=== PATIENT | male | born 1970 | race African-American/Black ===

== ENCOUNTER 2019-02-16 18:47 | Inpatient (IN) | payer OTHER ==
--- NOTE | 2019-02-16 18:56 | PDOC ---
Rapid Medical Evaluation Time Seen by Provider: 02/16/19 18:52 Medical Evaluation: 02/16/19 18:52 T 02/16/19 19:02 Discharge Disposition - Diagnosis Chest pain - Referrals - Patient Instructions - Post Discharge Activity
--- NOTE | 2019-02-16 19:42 | PDOC ---
Documentation entered by Elif Hunt SCRIBE, acting as scribe for Renata Meyer DO. Renata Meyer, DO: This documentation has been prepared by the Gilbert torres Adrianna, SCRIBE, under my direction and personally reviewed by me in its entirety. I confirm that the documentation accurately reflects all work, treatment, procedures, and medical decision making performed by me. 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 [place]. He was found with urinary incontinence, inability to converse and provide a history, and had a map on [employer] (with hand written directions) and his next of kin information (sister). As per phone call with sister, patient frequently wanders (began after last stroke) and she lost track of him 24 hours ago. He was in [facility] for 3 weeks for agitation and AMS, and was staying in the [facility]. HPI is limited secondary to patient being a poor historian. Patient shakes his head no when asked of any complaints of pain or symptoms when in the ED. PCP: Dr. Car - Physicial Exam PE: Constitutional: +Awake, responsive to name. +Severe dysarthria and expressive aphasia. +Disheveled, with odor of urine on him. Head: Normocephalic. Atraumatic Eyes: PERRL. EOMI. Conjunctivae are not pale. ENT: Mucous membranes are moist and intact. Posterior pharynx without exudates or erythema. Uvula midline. Neck: Supple. Full ROM. No lymphadenopathy. Cardiovascular: Regular rate. Regular rhythm. S1, S2 regular. Distal pulses are 2+ and symmetric. Pulmonary/Chest: No evidence of respiratory distress. Clear to auscultation bilaterally No wheezing, rales or rhonchi. Abdominal: Soft and non-distended. There is no tenderness. No rebound, guarding or rigidity. No organomegaly. No palpable masses. Good bowel sounds. Back: No CVA tenderness. Musculoskeletal: +LE MS 4/5 , with the right weaker than the left. 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 No edema. No cyanosis. No clubbing. Full range of motion in all extremities, and sensation intact (from what could be appreciated). No calf tenderness. Radial/pedal pulses are intact and 2+ bilaterally Skin: Skin is warm and dry. No petechiae. No purpura. Neurological: + +LE MS 4/5 , with the right weaker than the left. 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 No focal deficits. Psychiatric: Good eye contact. Normal interaction, affect and behavior. - Medical Decision Making 02/16/19 19:35 I, Dr. Renata Meyer, DO, attest that this document has been prepared under my direction and personally reviewed by me in its entirety. I further attest, that it accurately reflects all work, treatment, procedures and medical decision -making performed by me. 02/16/19 19:35 a/p: 48yo male with hx of cva x 3 with aphasia/dysarthria and motor weakness presents via ambulance after being found with urinary incontinence at the bus stop -pt is a poor historian -has a bus map and hand written map of [place] -pt has a hand written laminated note that has sister as next of kin and emergency contact - resident discussing with the sister -pt shakes head yes and no to questions, but is unable to provide a hx -pt is disheveled and with smell of urine -per sister, freq wanders, altered ms -wandered off yesterday, last seen over 24 hours ago 02/16/19 19:42 will send labs, ekg, cxr, ua, head ct 02/16/19 19:47 recently dc from [place] on 02/05 after admission for AMS and agitation dc on losartan 50mg, norvasc 5mg lives at [facility] - lead case manager Mr. Avilez [phone] 02/16/19 20:39 cxr clear 02/16/19 21:46 mildly elevated trop will need repeat pending ua 02/17/19 01:21 ua neg 02/17/19 01:49 case discussed with rosalio who accepts pt to service Heart Score/ECG Review - ECG Intrepretation Comment:: 02/16/19 20:19 sinus at 71, nl axis, q waves septally which are age indeterminate, no acute st/ t wave findings, qtc 482
[2019-02-16 20:18] LABS: BASO % 1.7 % (0-2.0); EOS % 2.8 % (0-4.5); HEMATOCRIT 41.3 % (35.4-49); HEMOGLOBIN 13.7 GM/dL (11.7-16.9); LYMPH % 36.8 % (8-40); MCH 27.5 pg (25.7-33.7); MCHC 33.3 g/dl (32.0-35.9); MEAN CELL VOLUME 82.5 fl (80-96); MONO % 10.8 % (3.8-10.2); NEUT % 47.9 % (42.8-82.8); PLATELET COUNT 228 K/MM3 (134-434); RDW 14.2 % (11.9-15.9); WHITE BLOOD COUNT 4.6 K/mm3 (4.0-10.0)
--- NOTE | 2019-02-16 20:36 | PDOC ---
History of Present Illness - General Chief Complaint: Altered Mental Status Stated Complaint: FAILURE TO THRIVE Time Seen by Provider: 02/16/19 18:52 History Source: Patient Exam Limitations: No Limitations - History of Present Illness Initial Comments: 02/16/19 19:51 48 yo M with a hx of CVA (3x, most recent 2017, known expressive aphasia, dysarthria, and RLE and LUE weakness) and bipolar disorder presents to the emergency department via EMS after being found at the train station in [place] incontinent and confused. Per the patient's sister (Lisa Shin; [phone] ; [address]) stated her brother has been missing for the past 24 hours and has no connections to [place]. He was recently admitted at [facility] for agitation and worsening confusion. He was released back to his men's detention at [facility] (community case manager is Mr. Hendrickson [phone]). Per the patient, he denies symptomatic pain. Denies the following with yes and no responded with head nodding: fevers, chills, chest pain, SOB, abdominal pain, dysuria, hematuria, diarrhea, and hematochezia. While at [facility] he was given norvasc and losartan. Allergies: NKDA Meds: norvasc 5 mg, 50 mg of losaran, aspirin, lipitor Shx: Per the sister, possibly with the head? Social: Unable to assess Past History - Past Medical History Allergies/Adverse Reactions: Allergies Allergy/AdvReac Type Severity Reaction Status Date / Time No Allergy Information Allergy Verified 02/16/19 19:27 Available Home Medications: Ambulatory Orders Unobtainable 02/16/19 CVA: Yes COPD: No HTN: Yes Other medical history: SHORT TERM MEMORY LOSS, INCONTINENT - Suicide/Smoking/Psychosocial Hx Smoking History: Unknown if ever smoked Have you smoked in the past 12 months: No Information on smoking cessation initiated: No Hx Alcohol Use: (unknown) Drug/Substance Use Hx: (unknown) Review of Systems - Review of Systems Able to Perform ROS?: No (AMS) Is the patient limited Lithuanian proficient: Yes *Physical Exam - Vital Signs Last Vital Signs Temp Pulse Resp BP Pulse Ox 97.4 F L 73 18 150/98 98 02/16/19 19:34 02/16/19 19:34 02/16/19 19:34 02/16/19 19:34 02/16/19 19:34 - Physical Exam General Appearance: Yes: Nourished, Disheveled, Thin. No: Apparent Distress, Alcohol on Breath HEENT: positive: EOMI, NORA, Normal Voice, Symmetrical, Pharynx Normal, Muffled/ Hoarse voice, Hearing Grossly Normal, Other (poor dentition). negative: Pale Conjunctivae, Scleral Icterus (R), Scleral Icterus (L), Pharyngeal Erythema, Tonsillar Exudate, Excessive drooling Neck: positive: Trachea midline, Supple. negative: Tender, Lymphadenopathy (R) , Lymphadenopathy (L) Respiratory/Chest: positive: Lungs Clear, Normal Breath Sounds. negative: Chest Tender, Respiratory Distress, Accessory Muscle Use, Crackles, Rales, Rhonchi, Stridor, Wheezing Cardiovascular: positive: Regular Rhythm, Regular Rate, S1, S2. negative: Systolic Murmur Gastrointestinal/Abdominal: positive: Normal Bowel Sounds, Flat, Soft. negative : Tender, Distended, Guarding, Rebound Lymphatic: negative: Adenopathy Musculoskeletal: positive: Normal Inspection. negative: CVA Tenderness, Vertebral Tenderness Extremity: positive: Normal Capillary Refill, Normal Inspection, Normal Range of Motion. negative: Tender, Swelling, Calf Tenderness Integumentary: positive: Normal Color, Dry, Warm. negative: Swelling, Ecchymosis Neurologic: positive: plan consultant II-XII NML intact, Alert. negative: Fully Oriented, Normal Mood/Affect, Motor Strength 5/5 (4/5 strength left egg pasteurizer. 4/5 strength left bicep and tricep. 3/5 strength on LLE flexion and extension. ), EOM Palsy, Facial Droop ED Treatment Course - LABORATORY CBC & Chemistry Diagram: 02/17/19 08:12 02/17/19 08:12 - RADIOLOGY Radiology Studies Ordered: Category Date Time Status HEAD CT WITHOUT CONTRAST [CT] Stat CT Scan 02/16/19 19:30 Ordered CHEST X-RAY PORTABLE* [RAD] Stat Radiology 02/16/19 19:30 Ordered Medical Decision Making - Medical Decision Making 02/16/19 22:02 48 yo M with a hx of CVA (3x, most recent 2018, known expressive aphasia, dysarthria, and RLE and LUE weakness) and bipolar disorder presents to the emergency department via EMS after being found at the train station in [place] incontinent and confused. Initial vitals: Initial Vital Signs Temp Pulse Resp BP Pulse Ox 97.6 F 71 16 150/98 100 02/16/19 19:01 02/16/19 19:01 02/16/19 19:01 02/16/19 19:01 02/16/19 19:01 Work up: Patient presents to the emergency department with AMS. Will order cbc, cmp, trops, ua, urine drug screen, tylenol, and salicylate. Will order head CT and CXR. Laboratory Tests 02/16/19 02/16/19 02/16/19 19:59 19:59 19:59 WBC RBC Hgb Hct MCV MCH MCHC RDW Plt Count MPV Absolute Neuts (auto) Neutrophils % Lymphocytes % Monocytes % Eosinophils % Basophils % Nucleated RBC % Sodium Potassium Chloride Carbon Dioxide Anion Gap BUN Creatinine Est GFR (CKD-EPI)AfAm Est GFR (CKD-EPI)NonAf Random Glucose Calcium Total Bilirubin AST ALT Alkaline Phosphatase Creatine Kinase 226 Creatine Kinase Index No Result Required. CK-MB (CK-2) < 1.0 Troponin I 0.06 H Total Protein Albumin Salicylates Acetaminophen < 10 L Alcohol, Quantitative < 3.0 02/16/19 02/16/19 02/16/19 19:59 19:59 19:59 WBC 4.6 RBC 5.00 Hgb 13.7 Hct 41.3 MCV 82.5 MCH 27.5 MCHC 33.3 RDW 14.2 Plt Count 228 MPV 9.0 Absolute Neuts (auto) 2.2 Neutrophils % 47.9 Lymphocytes % 36.8 Monocytes % 10.8 H Eosinophils % 2.8 Basophils % 1.7 Nucleated RBC % 0 Sodium 144 Potassium 4.7 Chloride 109 H Carbon Dioxide 30 Anion Gap 5 L BUN 14.4 Creatinine 1.0 Est GFR (CKD-EPI)AfAm 101.98 Est GFR (CKD-EPI)NonAf 87.99 Random Glucose 101 Calcium 8.9 Total Bilirubin 0.4 AST 23 ALT 17 Alkaline Phosphatase 77 Creatine Kinase Creatine Kinase Index CK-MB (CK-2) Troponin I Total Protein 7.0 Albumin 2.7 L Salicylates < 1.7 L Acetaminophen Alcohol, Quantitative Patient has an elevation of troponin of 0.06. The patient will need a straight catheter to obtain urine labs. 02/16/19 22:07 Patient became agitated while having a straight cath done. Will order 2 mg of Ativan IM and will have IV inserted for management of agitation. Per Davide, the patient needed haldol PRN. Of note, the EKG shows prolonged QT at 482 ms. NSR. No elevations in ST elevations or depressions. Will sign out patient to Dr. Mcwilliams. *DC/Admit/Observation/Transfer Diagnosis at time of Disposition: Elevated troponin Altered mental status Qualifiers: Altered mental status type: unspecified Qualified Code(s): R41.82 - Altered mental status, unspecified - Discharge Dispostion Condition at time of disposition: Stable - Referrals - Patient Instructions - Post Discharge Activity
[2019-02-16 21:22] LABS: ALBUMIN 2.7 g/dl (3.4-5.0); BILIRUBIN,TOTAL 0.4 mg/dL (0.2-1); BLOOD UREA NITROGEN 14.4 mg/dL (7-18); CALCIUM 8.9 mg/dL (8.5-10.1); POTASSIUM 4.7 mmol/L (3.5-5.1)
--- NOTE | 2019-02-16 22:18 | PDOC ---
*Physical Exam - Vital Signs Last Vital Signs Temp Pulse Resp BP Pulse Ox 97.4 F L 73 18 150/98 98 02/16/19 19:34 02/16/19 19:34 02/16/19 19:34 02/16/19 19:34 02/16/19 19:34 - Physical Exam Comments: MDM: *Reviewed vital signs, nursing notes, and prior visit documentation (if available). Received sign out from resident Dr. Hart. In short, pt is a 48 y/o male with history significant for Bipolar disorder and CVA with expressive aphasia, dysarthria, and RLE and LUE weakness. Found confused and incontent of urine at [facility]. Initial workup significant for mildly elevated troponin without acute ischemic EKG changes. Will f/u on pending UA and culture. May require sedation for straight catheterization. Concern for safe discharge as pt lives in a detention and sister lives in [place] without a car. Pt required Lorazepam to calm before obtaining catheterized urine sample. UA unremarkable for pyurita, nitrites, or leukocyte esterase. Low suspicion for acute cystitis. ED [facility] with elevated troponin. Repeat EKG and troponin pending at time of admission. Herb Mcwilliams M.D., PGY2 Emergency Medicine Resident ED Treatment Course - LABORATORY CBC & Chemistry Diagram: 02/16/19 19:59 02/16/19 19:59 - ADDITIONAL ORDERS Additional order review: Laboratory Results 02/16/19 02/16/19 02/16/19 19:59 19:59 19:59 Sodium 144 Potassium 4.7 Chloride 109 H Carbon Dioxide 30 Anion Gap 5 L BUN 14.4 Creatinine 1.0 Est GFR (CKD-EPI)AfAm 101.98 Est GFR (CKD-EPI)NonAf 87.99 Random Glucose 101 Calcium 8.9 Total Bilirubin 0.4 AST 23 ALT 17 Alkaline Phosphatase 77 Creatine Kinase 226 Creatine Kinase Index No Result Required. CK-MB (CK-2) < 1.0 Troponin I 0.06 H Total Protein 7.0 Albumin 2.7 L Salicylates < 1.7 L Acetaminophen Alcohol, Quantitative 02/16/19 02/16/19 19:59 19:59 Sodium Potassium Chloride Carbon Dioxide Anion Gap BUN Creatinine Est GFR (CKD-EPI)AfAm Est GFR (CKD-EPI)NonAf Random Glucose Calcium Total Bilirubin AST ALT Alkaline Phosphatase Creatine Kinase Creatine Kinase Index CK-MB (CK-2) Troponin I Total Protein Albumin Salicylates Acetaminophen < 10 L Alcohol, Quantitative < 3.0 02/16/19 19:59 RBC 5.00 MCV 82.5 MCHC 33.3 RDW 14.2 MPV 9.0 Neutrophils % 47.9 Lymphocytes % 36.8 Monocytes % 10.8 H Eosinophils % 2.8 Basophils % 1.7 *DC/Admit/Observation/Transfer Diagnosis at time of Disposition: Elevated troponin Altered mental status Qualifiers: Altered mental status type: unspecified Qualified Code(s): R41.82 - Altered mental status, unspecified - Discharge Dispostion Condition at time of disposition: Stable Decision to Admit order: Yes - Referrals - Patient Instructions - Post Discharge Activity
[2019-02-16] MEDS ORDERED: LORazepam 2 MG/ML SDV VIAL ONE (22:42)
[2019-02-17 01:17] LABS: EPI CELLS 1.6 /HPF (0-5/HPF); HYALINE CASTS 3 /lpf (0-8); PH,URINE 5.5 (5.0-8.0); URINE APPEARANCE CLEAR; URINE BILIRUBIN NEGATIVE (NEGATIVE); URINE COLOR YELLOW; URINE GLUCOSE (UA) NEGATIVE (NEGATIVE); URINE KETONE NEGATIVE (NEGATIVE); URINE LEUK ESTERASE NEGATIVE (NEGATIVE); URINE NITRITE NEGATIVE (NEGATIVE); URINE PROTEIN 3+ (NEGATIVE); URINE RBC 0 /hpf (0-4); URINE UROBILINOGEN 0.2 mg/dL (0.2-1.0); URINE WBC 1 /hpf (0-5)
[2019-02-17 01:27] LABS: COCAINE, UR NEGATIVE ng/ml (CUTOFF=300); METHADONE, UR NEGATIVE ng/ml (CUTOFF=300); OPIATES, URI NEGATIVE ng/ml (CUTOFF=300); PHENCYCLIDINE,URINE NEGATIVE ng/ml (CUTOFF=25); URINE AMPHETAMINES NEGATIVE ng/ml (CUTOFF=500); URINE BARBITURATES NEGATIVE ng/ml (CUTOFF=200); URINE BENZODIAZEPINES NEGATIVE ng/ml (CUTOFF=200)
--- NOTE | 2019-02-17 01:49 | HP ---
CHIEF COMPLAINT: found confused and incontinent PCP: HISTORY OF PRESENT ILLNESS: 48M w/ pmh of CVA(3x, 2017), expressive aphasia, dysarthria, bipolar disorder [place] ED contacted the patient's sister(Lisa Shin [phone]) for information. Pt prone to wandering ever since having his stroke. Recently, admitted to [facility] for confusion, agitation. HPI is limited as patient does not answer any questions, unwilling to nod or shake head to questions. HPI supplemented from chart review. ER course was notable for: (1) agitation during straight cath, prompting Ativan (2) CTH -neg for acute intracranial path, chronic supra/infratentorial infarcts , periventrical/subcortical microvascular disease (3) Utox neg Recent Travel: PAST MEDICAL HISTORY: CVA(3x, 2017), expressive aphasia, dysarthria, bipolar disorder PAST SURGICAL HISTORY: unknown, possible head surg Social History: Smoking: uknown Alcohol: unknown Drugs: unknown Family History: unknown Allergies: uknown No Allergy Information Available Allergy (Verified 02/16/19 19:27) HOME MEDICATIONS: Home Medications Medication Instructions Recorded Unobtainable 02/16/19 REVIEW OF SYSTEMS - unable to obtain as patient does not answer questions PHYSICAL EXAMINATION Vital Signs - 24 hr 02/16/19 02/16/19 02/17/19 19:01 19:34 00:30 Temperature 97.6 F 97.4 F L 98.4 F Pulse Rate 71 73 Pulse Rate [ 67 Right Radial] Respiratory 16 18 12 Rate Blood Pressure 150/98 150/98 Blood Pressure 170/128 H [Left Arm] O2 Sat by Pulse 100 98 99 Oximetry (%) GENERAL: in no acute distress. HEAD: no signs of trauma. Multiple stellate scalp lesions EYES: Pupils equal, round and reactive to light, extraocular movements intact, sclera anicteric, conjunctiva clear. EARS, NOSE, THROAT: Ears normal, nares patent, oropharynx clear without exudates. Moist mucous membranes. NECK: supple without lymphadenopathy, JVD, or masses. LUNGS: Breath sounds equal, clear to auscultation bilaterally. No wheezes, and no crackles. No accessory muscle use. HEART: Regular rate and rhythm, normal S1 and S2 without murmur, rub or gallop. ABDOMEN: Soft, nontender, not distended, no guarding, no rebound, no masses. MUSCULOSKELETAL: Normal range of motion at all joints. No bony deformities or tenderness. No CVA tenderness. UPPER EXTREMITIES: 2+ pulses, warm, well-perfused. No cyanosis. No clubbing. No peripheral edema. LOWER EXTREMITIES: 2+ pulses, warm, well-perfused. No calf tenderness. No peripheral edema. NEUROLOGICAL: GCS 10(E3, V2, M5) SKIN: Warm, dry, normal turgor, no rashes or lesions noted, normal capillary refill. Laboratory Results - last 24 hr 02/16/19 02/16/19 02/16/19 19:59 19:59 19:59 WBC RBC Hgb Hct MCV MCH MCHC RDW Plt Count MPV Absolute Neuts (auto) Neutrophils % Lymphocytes % Monocytes % Eosinophils % Basophils % Nucleated RBC % Sodium Potassium Chloride Carbon Dioxide Anion Gap BUN Creatinine Est GFR (CKD-EPI)AfAm Est GFR (CKD-EPI)NonAf Random Glucose Calcium Total Bilirubin AST ALT Alkaline Phosphatase Creatine Kinase 226 Creatine Kinase Index No Result Required. CK-MB (CK-2) < 1.0 Troponin I 0.06 H Total Protein Albumin Urine Color Urine Appearance Urine pH Ur Specific [place] Urine Protein Urine Glucose (UA) Urine Ketones Urine Blood Urine Nitrite Urine Bilirubin Urine Urobilinogen Ur Leukocyte Esterase Urine WBC (Auto) Urine RBC (Auto) Urine Casts (Auto) U Epithel Cells (Auto) Urine Bacteria (Auto) Salicylates Opiates Screen Methadone Screen Acetaminophen < 10 L Barbiturate Screen Phencyclidine Screen Ur Amphetamines Screen MDMA (Ecstasy) Screen Benzodiazepines Screen Cocaine Screen U Marijuana (THC) Screen Alcohol, Quantitative < 3.0 02/16/19 02/16/19 02/16/19 19:59 19:59 19:59 WBC 4.6 RBC 5.00 Hgb 13.7 Hct 41.3 MCV 82.5 MCH 27.5 MCHC 33.3 RDW 14.2 Plt Count 228 MPV 9.0 Absolute Neuts (auto) 2.2 Neutrophils % 47.9 Lymphocytes % 36.8 Monocytes % 10.8 H Eosinophils % 2.8 Basophils % 1.7 Nucleated RBC % 0 Sodium 144 Potassium 4.7 Chloride 109 H Carbon Dioxide 30 Anion Gap 5 L BUN 14.4 Creatinine 1.0 Est GFR (CKD-EPI)AfAm 101.98 Est GFR (CKD-EPI)NonAf 87.99 Random Glucose 101 Calcium 8.9 Total Bilirubin 0.4 AST 23 ALT 17 Alkaline Phosphatase 77 Creatine Kinase Creatine Kinase Index CK-MB (CK-2) Troponin I Total Protein 7.0 Albumin 2.7 L Urine Color Urine Appearance Urine pH Ur Specific [place] Urine Protein Urine Glucose (UA) Urine Ketones Urine Blood Urine Nitrite Urine Bilirubin Urine Urobilinogen Ur Leukocyte Esterase Urine WBC (Auto) Urine RBC (Auto) Urine Casts (Auto) U Epithel Cells (Auto) Urine Bacteria (Auto) Salicylates < 1.7 L Opiates Screen Methadone Screen Acetaminophen Barbiturate Screen Phencyclidine Screen Ur Amphetamines Screen MDMA (Ecstasy) Screen Benzodiazepines Screen Cocaine Screen U Marijuana (THC) Screen Alcohol, Quantitative 02/17/19 02/17/19 00:52 00:52 WBC RBC Hgb Hct MCV MCH MCHC RDW Plt Count MPV Absolute Neuts (auto) Neutrophils % Lymphocytes % Monocytes % Eosinophils % Basophils % Nucleated RBC % Sodium Potassium Chloride Carbon Dioxide Anion Gap BUN Creatinine Est GFR (CKD-EPI)AfAm Est GFR (CKD-EPI)NonAf Random Glucose Calcium Total Bilirubin AST ALT Alkaline Phosphatase Creatine Kinase Creatine Kinase Index CK-MB (CK-2) Troponin I Total Protein Albumin Urine Color Yellow Urine Appearance Clear Urine pH 5.5 Ur Specific [place] 1.019 Urine Protein 3+ H Urine Glucose (UA) Negative Urine Ketones Negative Urine Blood Negative Urine Nitrite Negative Urine Bilirubin Negative Urine Urobilinogen 0.2 Ur Leukocyte Esterase Negative Urine WBC (Auto) 1 Urine RBC (Auto) 0 Urine Casts (Auto) 3 U Epithel Cells (Auto) 1.6 Urine Bacteria (Auto) 3.0 Salicylates Opiates Screen Negative Methadone Screen Negative Acetaminophen Barbiturate Screen Negative Phencyclidine Screen Negative Ur Amphetamines Screen Negative MDMA (Ecstasy) Screen Negative Benzodiazepines Screen Negative Cocaine Screen Negative U Marijuana (THC) Screen Negative Alcohol, Quantitative ASSESSMENT/PLAN: 48M w/ pmh of CVA(3x, 2017), expressive aphasia, dysarthria, bipolar disorder [place], presenting with AMS w/ uknown/unverfied baseline. # AMS 2/2 unknow etiology vs baseline # risk of agitation > CTH: prelim read for acute intracranial path. Chronic supra/infratenorial infarct, periventricular/subcortical microvascular disease > UA: protein 3+, neg LE, neg nitrite > Utox: neg - fu final CTH - consider MRI head - fall precautions - seizure precautions - 1:1 sitter - fu labs: ammonia, B12, RPR, HIV - fu UCX - fu carotid duplex - ativan PRN for agitations # troponemia > troponin 0.06 --> 0.06 > EKG: NSR, w/ rpt also showing NSR - fu serial troponins # chronic HTN - hydralazine PRN - will need med rec FEN - NPO d/t aspiration risk - NS @100ml/h DVT prophylaxis - enoxaparin DISPO # nondomicile -- ?lives at [facility] - fu social work consult Glen Cummings, DO PGY-1 Medicine, PM-Float [id number] 02/17/19 Visit type - Emergency Visit Emergency Visit: Yes ED Registration Date: 02/17/19 Care time: The patient presented to the Emergency Department on the above date and was hospitalized for further evaluation of their emergent condition. - New Patient This patient is new to me today: Yes Date on this admission: 02/17/19 - Critical Care Critical Care patient: No ATTENDING PHYSICIAN STATEMENT I saw and evaluated the patient. I reviewed the resident's note and discussed the case with the resident. I agree with the resident's findings and plan as documented. SUBJECTIVE: OBJECTIVE: ASSESSMENT AND PLAN:
[2019-02-17] MEDS ORDERED: hydrALAZINE HCL 20 MG/ML VIAL IVPUSH ONE (02:26)
[2019-02-17] MEDS ORDERED: hydrALAZINE HCL 20 MG/ML VIAL ONE (02:29)
[2019-02-17] MEDS ORDERED: SODIUM CHLORIDE 1,000 ML IV SCH (06:15)
[2019-02-17 08:35] LABS: BASO % 1.7 % (0-2.0); EOS % 4.3 % (0-4.5); HEMATOCRIT 43.3 % (35.4-49); HEMOGLOBIN 14.5 GM/dL (11.7-16.9); LYMPH % 26.4 % (8-40); MCH 27.4 pg (25.7-33.7); MCHC 33.4 g/dl (32.0-35.9); MEAN CELL VOLUME 82.2 fl (80-96); MEAN PLT VOLUME 8.8 fl (7.5-11.1); MONO % 12.8 % (3.8-10.2); NEUT % 54.8 % (42.8-82.8); PLATELET COUNT 203 K/MM3 (134-434); RBC 5.27 M/mm3 (4.00-5.60); RDW 14.5 % (11.9-15.9)
[2019-02-17 09:00] LABS: ALBUMIN 2.6 g/dl (3.4-5.0); BILIRUBIN,TOTAL 0.4 mg/dL (0.2-1); BLOOD UREA NITROGEN 11.1 mg/dL (7-18); MAGNESIUM 1.9 mg/dL (1.8-2.4); TOT PROT 6.7 g/dl (6.4-8.2)
[2019-02-17] MEDS ORDERED: ENOXAPARIN NA (PORCINE) 40 MG/0.4 ML DISP.SYRIN SQ SCH (10:00)
[2019-02-17] MEDS ORDERED: TOBRAMYCIN 0.3% OPHTH SOLN 5 ML BOTTLE OD ONE (13:45)
[2019-02-17] MEDS ORDERED: LISINOPRIL 20 MG TABLET (FP) PO SCH (13:45)
--- NOTE | 2019-02-17 14:36 | EKG ---
Test Reason : Blood Pressure : / mmHG Vent. Rate : 060 BPM Atrial Rate : 060 BPM P-R Int : 154 ms QRS Dur : 102 ms QT Int : 448 ms P-R-T Axes : 067 036 026 degrees QTc Int : 448 ms NORMAL SINUS RHYTHM WITH SINUS ARRHYTHMIA MINIMAL VOLTAGE CRITERIA FOR LVH, MAY BE NORMAL VARIANT BORDERLINE ECG WHEN COMPARED WITH ECG OF 17-FEB-2019 01:41, NO SIGNIFICANT CHANGE WAS FOUND Confirmed by HERNANDO TOSCANO, CLINT ([id number]) on 02/17/2019 2:36:35 PM Referred By: Confirmed By:CLINT VILLAGOMEZ MD
--- NOTE | 2019-02-17 14:36 | EKG ---
Test Reason : Blood Pressure : / mmHG Vent. Rate : 061 BPM Atrial Rate : 061 BPM P-R Int : 166 ms QRS Dur : 104 ms QT Int : 452 ms P-R-T Axes : 070 049 034 degrees QTc Int : 455 ms NORMAL SINUS RHYTHM WITH SINUS ARRHYTHMIA NORMAL ECG WHEN COMPARED WITH ECG OF 16-FEB-2019 19:42, NO SIGNIFICANT CHANGE WAS FOUND Confirmed by CLINT VILLAGOMEZ MD ([id number]) on 02/17/2019 2:36:44 PM Referred By: Confirmed By:CLINT VILLAGOMEZ MD
--- NOTE | 2019-02-17 14:39 | EKG ---
Test Reason : Blood Pressure : / mmHG Vent. Rate : 071 BPM Atrial Rate : 071 BPM P-R Int : 168 ms QRS Dur : 102 ms QT Int : 444 ms P-R-T Axes : 061 033 017 degrees QTc Int : 482 ms NORMAL SINUS RHYTHM PROLONGED QT ABNORMAL ECG NO PREVIOUS ECGS AVAILABLE Confirmed by CLINT VILLAGOMEZ MD ([id number]) on 02/17/2019 2:38:48 PM Referred By: Confirmed By:CLINT VILLAGOMEZ MD
[2019-02-17] MEDS ORDERED: LISINOPRIL 20 MG TABLET (FP) ONE (15:37)
[2019-02-17] MEDS ORDERED: TOBRAMYCIN 0.3% OPHTH SOLN 5 ML BOTTLE ONE (15:37)
--- NOTE | 2019-02-17 16:31 | ECHO ---
Name: MANDO MIGUEL SHANE Exam:Adult Echocardiogram Study Date: 02/17/2019 12:36 PM Age: 48 yrs Reason For Study: Stroke Height: 67 in Weight: 160 lb BSA: 1.8 m2 MMode/2D Measurements & Calculations IVSd: 1.5 cm Ao root diam: 3.1 cm LVIDd: 3.7 cm LA dimension: 2.8 cm LVIDs: 2.6 cm LVPWd: 1.4 cm EDV(Teich): 59.7 ml LVOT diam: 2.2 cm ESV(Teich): 25.5 ml LAV (MOD-bp): 31.4 ml Doppler Measurements & Calculations MV E max santosh: 57.7 cm/sec Ao V2 max: 126.9 cm/sec MV A max santosh: 69.4 cm/sec Ao max P.5 mmHg MV E/A: 0.83 MV dec time: 0.18 sec ALONSO(V,D): 3.7 cm2 LV V1 max P.6 mmHg MR max santosh: 282.3 cm/sec LV V1 max: 118.8 cm/sec MR max P.9 mmHg PA V2 max: 99.1 cm/sec Med Peak E' Santosh: 6.7 cm/sec PA max P.9 mmHg Med E/e': 8.6 Lat Peak E' Santosh: 11.4 cm/sec Lat E/e': 5.1 Procedure A complete two-dimensional transthoracic echocardiogram was performed (2D, M-mode, Doppler and color flow Doppler). Left Ventricle There is moderate concentric left ventricular hypertrophy. The left ventricular ejection fraction is normal. Ejection Fraction = 65-70%. The left ventricular wall motion is normal. Right Ventricle The right ventricle is normal in size and function. Atria Normal left and right atrial size and function. Mitral Valve There is trace mitral regurgitation. Tricuspid Valve No tricuspid regurgitation. There was insufficient TR detected to calculate RV systolic pressure. Aortic Valve The aortic valve is trileaflet. No hemodynamically significant valvular aortic stenosis. No aortic regurgitation is present. Pulmonic Valve There is no pulmonic valvular regurgitation. Great Vessels The aortic root is normal size. Pericardium/Pleura There is no pericardial effusion. Interpretation Summary There is moderate concentric left ventricular hypertrophy. The left ventricular ejection fraction is normal. The right ventricle is normal in size and function. There is trace mitral regurgitation. MD Dany Mccarty 02/17/2019 04:31 PM
--- NOTE | 2019-02-17 16:39 | PN ---
Teaching Attending Note Name of Resident: Rachelle Dumont ATTENDING PHYSICIAN STATEMENT I saw and evaluated the patient. I reviewed the resident's note and discussed the case with the resident. I agree with the resident's findings and plan as documented. SUBJECTIVE:asymptomatic. sitting comfortable on stretcher. OBJECTIVE: Last Vital Signs Temp Pulse Resp BP Pulse Ox 98.7 F 72 18 136/90 99 02/17/19 12:33 02/17/19 12:33 02/17/19 12:33 02/17/19 12:33 02/17/19 12:33 General NAD, grunts on questioning. alert. dishelved, poor personal hygiene CV S1 s2 RRR no murmur/rubs/gallops Lungs CTA B/L no wheezing/rales/rhonchi Abdomen soft NT/ND Neuro CN grossly intact, disarthric. unable to follow 2 step commands. strength equal in all 4 extremities. gait intact ASSESSMENT AND PLAN: 48yo M with PMH CVA x3 with residual dysarthria, seizure, bipolar, [place] and confused 1. Acute toxic metabolic encephalopathy- possible CVA vs acute psychosis vs post -ictal seizure vs HTN emergency. is now alert. will need to d/w sister what is baseline. Utox and ammonia level normal. Head CT with no acute infarcts. will need to determine if patient has been compliant with medications and if he is responsible or has assistance with this. Vitamin B12/RPR/HIV pending 2. HTN emergency- received hydralazine 10mg IVP in the Er with improvement. will start lisinopril. will complete med rec and re-start home medications. 3. Tropinemia- likely demand from HTN. Flat trend 0.06-0.06-0.05. check echo. can likely get ischemia eval as outpatient 4. CVA- does not appear to have acute CVA. will need med rec and re-start medications. liekly will need ASA and statin 5. Bipolar- re-start home medications 6. seizure- no seizure like activity while hospitalized. monitor for seizure. seizure precautions 7. DVT ppx- lovenox 8. will need collateral information from sister to determine living arrangements and safety for patient on discharge. med reconciliation. can d/c cardiac monitoring
--- NOTE | 2019-02-17 18:17 | PN ---
Physical Exam: SUBJECTIVE: Patient seen and examined. Dysarthria, unable to verbally communicate. atients sister is Ms. Shin [phone]. OBJECTIVE: Vital Signs Period Temp Pulse Resp BP Sys/Alba Pulse Ox Last 24 Hr 97.4 F-98.8 F 62-73 10-18 136-188/90-128 97-100 GENERAL: Alert, awake, unable to assess orientation. Appears in no acute distress. HEAD: Normal with no signs of trauma. EYES: Subconjectival hemorrhages noted b/l. Denies pain or visual disturbances. ENT: Poor oral hygiene LUNGS: Breath sounds equal, clear to auscultation bilaterally, no wheezes, no crackles, no accessory muscle use. HEART: Regular rate and rhythm, S1, S2 without murmur, rub or gallop. ABDOMEN: Soft, nontender, nondistended, normoactive bowel sounds, no guarding, no masses. EXTREMITIES: 2+ pulses, warm, well-perfused, no edema. SKIN: Warm, dry, normal turgor, no rashes or lesions noted Laboratory Results - last 24 hr Laboratory Last Values WBC 4.0 K/mm3 (4.0-10.0) 02/17/19 08:12 RBC 5.27 M/mm3 (4.00-5.60) 02/17/19 08:12 Hgb 14.5 GM/dL (11.7-16.9) 02/17/19 08:12 Hct 43.3 % (35.4-49) 02/17/19 08:12 MCV 82.2 fl (80-96) 02/17/19 08:12 MCH 27.4 pg (25.7-33.7) 02/17/19 08:12 MCHC 33.4 g/dl (32.0-35.9) 02/17/19 08:12 RDW 14.5 % (11.9-15.9) 02/17/19 08:12 Plt Count 203 K/MM3 (134-434) 02/17/19 08:12 MPV 8.8 fl (7.5-11.1) 02/17/19 08:12 Absolute Neuts (auto) 2.2 K/mm3 (1.5-8.0) 02/17/19 08:12 Neutrophils % 54.8 % (42.8-82.8) 02/17/19 08:12 Lymphocytes % 26.4 % (8-40) D 02/17/19 08:12 Monocytes % 12.8 % (3.8-10.2) H 02/17/19 08:12 Eosinophils % 4.3 % (0-4.5) 02/17/19 08:12 Basophils % 1.7 % (0-2.0) 02/17/19 08:12 Nucleated RBC % 0 % (0-0) 02/17/19 08:12 ESR 20 mm/hr (0-10) H 02/17/19 08:12 Sodium 144 mmol/L (136-145) 02/17/19 08:12 Potassium 4.0 mmol/L (3.5-5.1) 02/17/19 08:12 Chloride 109 mmol/L (98-107) H 02/17/19 08:12 Carbon Dioxide 30 mmol/L (21-32) 02/17/19 08:12 Anion Gap 4 MMOL/L (8-16) L 02/17/19 08:12 BUN 11.1 mg/dL (7-18) 02/17/19 08:12 Creatinine 1.0 mg/dL (0.55-1.3) 02/17/19 08:12 Est GFR (CKD-EPI)AfAm 101.98 02/17/19 08:12 Est GFR (CKD-EPI)NonAf 87.99 02/17/19 08:12 Random Glucose 82 mg/dL (74-106) 02/17/19 08:12 Calcium 9.0 mg/dL (8.5-10.1) 02/17/19 08:12 Magnesium 1.9 mg/dL (1.8-2.4) 02/17/19 08:12 Total Bilirubin 0.4 mg/dL (0.2-1) 02/17/19 08:12 AST 13 U/L (15-37) L 02/17/19 08:12 ALT 17 U/L (13-61) 02/17/19 08:12 Alkaline Phosphatase 73 U/L (45-117) 02/17/19 08:12 Ammonia < 10.00 umol/L (11-32) L 02/17/19 08:12 Creatine Kinase 225 U/L (26-308) 02/17/19 08:12 Creatine Kinase Index 0.4 % (0.0-5.0) 02/17/19 08:12 CK-MB (CK-2) 1.0 ng/mL (0.5-3.6) 02/17/19 08:12 Troponin I 0.05 ng/ml (0.00-0.05) 02/17/19 08:12 C-Reactive Protein 0.5 MG/DL (0.00-0.3) H 02/17/19 08:12 Total Protein 6.7 g/dl (6.4-8.2) 02/17/19 08:12 Albumin 2.6 g/dl (3.4-5.0) L 02/17/19 08:12 Triglycerides 57 mg/dL (0-150) 02/17/19 08:12 Cholesterol 189 mg/dL (50-200) 02/17/19 08:12 Total LDL Cholesterol 129 mg/dL (5-100) H 02/17/19 08:12 HDL Cholesterol 58 mg/dL (40-60) 02/17/19 08:12 Vitamin B12 468 pg/ml (193-986) 02/17/19 08:12 Urine Color Yellow 02/17/19 00:52 Urine Appearance Clear 02/17/19 00:52 Urine pH 5.5 (5.0-8.0) 02/17/19 00:52 Ur Specific [place] 1.019 (1.010-1.035) 02/17/19 00:52 Urine Protein 3+ (NEGATIVE) H 02/17/19 00:52 Urine Glucose (UA) Negative (NEGATIVE) 02/17/19 00:52 Urine Ketones Negative (NEGATIVE) 02/17/19 00:52 Urine Blood Negative (NEGATIVE) 02/17/19 00:52 Urine Nitrite Negative (NEGATIVE) 02/17/19 00:52 Urine Bilirubin Negative (NEGATIVE) 02/17/19 00:52 Urine Urobilinogen 0.2 mg/dL (0.2-1.0) 02/17/19 00:52 Ur Leukocyte Esterase Negative (NEGATIVE) 02/17/19 00:52 Urine WBC (Auto) 1 /hpf (0-5) 02/17/19 00:52 Urine RBC (Auto) 0 /hpf (0-4) 02/17/19 00:52 Urine Casts (Auto) 3 /lpf (0-8) 02/17/19 00:52 U Epithel Cells (Auto) 1.6 /HPF (0-5/HPF) 02/17/19 00:52 Urine Bacteria (Auto) 3.0 /hpf (NEGATIVE) 02/17/19 00:52 Salicylates < 1.7 mg/dL (2.8-20) L 02/16/19 19:59 Opiates Screen Negative ng/ml (IDVHZA=601) 02/17/19 00:52 Methadone Screen Negative ng/ml (RLODRI=789) 02/17/19 00:52 Acetaminophen < 10 ug/mL (10-30) L 02/16/19 19:59 Barbiturate Screen Negative ng/ml (ZTKVBV=914) 02/17/19 00:52 Phencyclidine Screen Negative ng/ml (CUTOFF=25) 02/17/19 00:52 Ur Amphetamines Screen Negative ng/ml (OUSBTL=479) 02/17/19 00:52 MDMA (Ecstasy) Screen Negative ng/ml (USQLIX=861) 02/17/19 00:52 Benzodiazepines Screen Negative ng/ml (RSGXSX=449) 02/17/19 00:52 Cocaine Screen Negative ng/ml (AVGNSF=353) 02/17/19 00:52 U Marijuana (THC) Screen Negative ng/ml (CUTOFF=50) 02/17/19 00:52 Alcohol, Quantitative < 3.0 mg/dL (0.0-5.0) 02/16/19 19:59 RPR Titer Nonreactive (NONREACTIVE) 02/17/19 08:12 Active Medications Current Medications Enoxaparin Sodium (Lovenox -) 40 mg SQ DAILY [facility] Last Admin: 02/17/19 11:27 Dose: 40 mg Sodium Chloride (Normal Saline -) 1,000 mls @ 100 mls/hr IV ASDIR [facility] Last Admin: 02/17/19 07:14 Dose: 100 mls/hr Lisinopril (Prinivil) 20 mg PO DAILY [facility] Last Admin: 02/17/19 15:37 Dose: 20 mg ASSESSMENT/PLAN: 48 y.o. M PMH CVA(x3, in 2018), expressive aphasia, dysarthria, bipolar disorder presented with AMS. #Acute metabolic encephalopathy -CT head neg for acute changes -UA shows 3+ protein; repeat in AM -F/u urine cx -Carotid US neg for stenosis -Ammonia WNL -Neg U-tox -Vit B12 WNL -HIV, RPR pending -Neuro checks -S/p 1 dose ativan in ED #Hypertensive emergency -BP 188/111 on admission; s/p 1 dose hydralazine 10mg IV in ED -Latest BP 128/84 -Started on Lisinopril 20 daily -Pt's sister says he does not take any medications at home, no hx of HTN #Tropinemia -Trops + x2 -Latest trop downtrended 0.05 -Echo: Trace MR, mod LVH, normal EF #Hx CVA -CT head neg for acute pathology -Takes no home meds #Bipolar d/o -Pt takes no meds at home -F/u w/ sister regarding past treatments/ psychiatric hospitalizations #FEN -NS -monitor lytes -Low salt diet #DVT PPX -LVX 40 SQ/ daily #Dispo -Pts sister wishes for social contact worker to address facility options, does not think he should go back to intermediate Visit type - Emergency Visit Emergency Visit: No - New Patient This patient is new to me today: No - Critical Care Critical Care patient: No ATTENDING PHYSICIAN STATEMENT I saw and evaluated the patient. I reviewed the resident's note and discussed the case with the resident. I agree with the resident's findings and plan as documented. SUBJECTIVE: OBJECTIVE: ASSESSMENT AND PLAN:
[2019-02-17] MEDS ORDERED: PT OWN MED DRAWER 7, Y5N ONE (19:39)
[2019-02-17 20:35] VITALS: BMI 26.4
[2019-02-17 22:46] LABS: EPI CELLS 1.7 /HPF (0-5/HPF); HYALINE CASTS 4 /lpf (0-8); PH,URINE 6.5 (5.0-8.0); URINE APPEARANCE CLEAR; URINE BACTERIA 1.2 /hpf (NEGATIVE); URINE BILIRUBIN NEGATIVE (NEGATIVE); URINE COLOR YELLOW; URINE GLUCOSE (UA) NEGATIVE (NEGATIVE); URINE KETONE NEGATIVE (NEGATIVE); URINE LEUK ESTERASE NEGATIVE (NEGATIVE); URINE NITRITE NEGATIVE (NEGATIVE); URINE PROTEIN 2+ (NEGATIVE); URINE RBC 3 /hpf (0-4); URINE WBC 6 /hpf (0-5)
--- NOTE | 2019-02-17 22:53 | PN ---
Teaching Attending Note Name of Resident: Glen Cummings ATTENDING PHYSICIAN STATEMENT I saw and evaluated the patient. I reviewed the resident's note and discussed the case with the resident. I agree with the resident's findings and plan as documented. *History and physical late entry; original note not saved* Seen and examined; please refer to resident note for further historical information. Briefly, this is a 48 y/o male found down at the [employer] [facility] [employer]. He was noted to be hemodynamically stable and afebrile. History of CVA with resulting dysphagia. Noted to have some nasolabial flattening, etc. on L-side in ER. He denied complaints. Found to be disheveled. Confirming psych hx. No witnessed sz, no post-ctal state documented, etc. VS, labs, imaging reviewed NAD, Following commands and responds to verbal and painful stimuli keenly but nonverbal appearing with some odd behaviors. RRR s1/2 no mgr Lungs CTAB, w/ sym exp NT ND +BS CN2-12 wnl, no fnd Normal mood, appropriate behavior Imaging studies reviewed ASSESSMENT AND PLAN: Patient is a 48 y/o male with a complex PMH being confirmed at time of admission presenting after being found down and nonverbal at the [employer]. he is hemodynamically stable and afebrile. Need to confirm if any acute infarcts, etc. No apparent seizures. doesn't appear infected. Considering psych consult. Slight troponemia flat and likely demand; will followup and monitor on tele.
[2019-02-18] MEDS ORDERED: SODIUM CHLORIDE 1,000 ML IV SCH (07:33)
[2019-02-18] MEDS ORDERED: amLODIPine BESYLATE 5 MG TABLET (FP) PO SCH (10:00)
[2019-02-18 10:04] LABS: BASO % 1.1 % (0-2.0); HEMATOCRIT 41.8 % (35.4-49); HEMOGLOBIN 13.8 GM/dL (11.7-16.9); LYMPH % 29.9 % (8-40); MCH 27.2 pg (25.7-33.7); MEAN CELL VOLUME 82.4 fl (80-96); MEAN PLT VOLUME 9.2 fl (7.5-11.1); MONO % 13.1 % (3.8-10.2); NEUT % 52.9 % (42.8-82.8); PLATELET COUNT 204 K/MM3 (134-434); RBC 5.07 M/mm3 (4.00-5.60); WHITE BLOOD COUNT 4.4 K/mm3 (4.0-10.0)
[2019-02-18 10:22] LABS: ALBUMIN 2.6 g/dl (3.4-5.0); BILIRUBIN,TOTAL 0.3 mg/dL (0.2-1); BLOOD UREA NITROGEN 16.1 mg/dL (7-18); CALCIUM 8.9 mg/dL (8.5-10.1); CREATININE 0.9 mg/dL (0.55-1.3); MAGNESIUM 1.7 mg/dL (1.8-2.4); PHOSPHOROUS 3.2 mg/dL (2.5-4.9); POTASSIUM 3.9 mmol/L (3.5-5.1); TOT PROT 6.6 g/dl (6.4-8.2)
[2019-02-18] MEDS: LISINOPRIL 20 MG TABLET (FP) PO SCH (10:23)
[2019-02-18] MEDS: ENOXAPARIN NA (PORCINE) 40 MG/0.4 ML DISP.SYRIN SQ SCH (10:23)
[2019-02-18] MEDS: ASPIRIN COATED 81 MG TABLET.EC PO SCH (10:23)
--- NOTE | 2019-02-18 14:54 | PN ---
Teaching Attending Note Name of Resident: Rachelle Dumont ATTENDING PHYSICIAN STATEMENT I saw and evaluated the patient. I reviewed the resident's note and discussed the case with the resident. I agree with the resident's findings and plan as documented. SUBJECTIVE:sitting comfortable. is able to answer yes/no. says no to any pain or issues. does not take medications and says no when asked if he is supposed to be taking medications. seems in agreement OBJECTIVE: Last Vital Signs Temp Pulse Resp BP Pulse Ox 98 F 68 20 149/95 100 02/18/19 14:43 02/18/19 14:43 02/18/19 14:43 02/18/19 14:43 02/17/19 21:00 General NAD, CV S1 s2 RRR no murmur/rubs/gallops Lungs CTA B/L no wheezing/rales/rhonchi Abdomen soft NT/ND Neuro CN grossly intact, disarthric. unable to follow 2 step commands. strength equal in all 4 extremities. gait intact ASSESSMENT AND PLAN: 48yo M with PMH CVA x3 with residual dysarthria, seizure, bipolar, [place] and confused 1. Acute toxic metabolic encephalopathy- possible CVA vs acute psychosis vs post -ictal seizure vs HTN emergency. alert and appears to be at baseline. will consult psych for evaluation as there is some history of bipolar but pt does not take medications. all workup has been negative. 2. HTN emergency- controlled but above goal. lisa start norvasc and titrate as needed to optimize BP. 3. Tropinemia- likely demand from HTN. Flat trend 0.06-0.06-0.05. echo reviewed. can likely get ischemia eval as outpatient 4. CVA- does not appear to have acute CVA. does not take medications. would benefit from secondary prevention. start asa and statin 5. Bipolar- does nto take medications. psych consulted if necessary at this time. will try to obtain collateral information from [facility] as he was recently there. 6. seizure- no seizure like activity while hospitalized. monitor for seizure. seizure precautions 7. DVT ppx- lovenox 8. As per sister he lives in skilled nursing but has habit of wandering. does not take medications and unsure if he is supposed to be on any. was recently at [facility]. Is unable to care for him and is agreeemnt in lock down dementia unit. This patient would benefit from facility where they can assist in medicating where he would be in a safe environment. Will d/w CM
--- NOTE | 2019-02-18 15:27 | PN ---
Physical Exam: SUBJECTIVE: Patient seen and examined. Hypertensive to 170/111 today; repeat BP 143/95. Started on Lipitor and Norvasc. Dysarthric, unable to obtain further history. Spoke with patient's most recent fdc, [facility] in [place], says patient was staying at the fdc for not even 1 day and left on his own accord on 01/08/19. [place] says he was incarcerated for an unknown duration until 2017 and endorsed a PMH of HTN, depression and multi substance abuse including marijuana and alcohol. Prior to [facility] pt stayed at [facility] in [place] for about 2 months. Pt has no complaints at this time, denies any cp/ sob/ nausea/ vomiting/ diarrhea. OBJECTIVE: Vital Signs Period Temp Pulse Resp BP Sys/Alba Pulse Ox Last 24 Hr 98 F-98.8 F 68-73 20-20 128-153/84-98 99-100 GENERAL: Alert, awake, unable to assess orientation. Appears in no acute distress. HEENT: Poor oral hygiene. No scleral icterus. Subconjunctival hemorrhages have significantly improved. LUNGS: Breath sounds equal, clear to auscultation bilaterally, no wheezes, no crackles, no accessory muscle use. HEART: Regular rate and rhythm, S1, S2 without murmur, rub or gallop. ABDOMEN: Soft, nontender, nondistended, normoactive bowel sounds, no guarding, no masses. EXTREMITIES: 2+ pulses, warm, well-perfused, no edema. SKIN: Warm, dry, normal turgor, no rashes or lesions noted Laboratory Results - last 24 hr Laboratory Last Values WBC 4.4 K/mm3 (4.0-10.0) 02/18/19 09:05 RBC 5.07 M/mm3 (4.00-5.60) 02/18/19 09:05 Hgb 13.8 GM/dL (11.7-16.9) 02/18/19 09:05 Hct 41.8 % (35.4-49) 02/18/19 09:05 MCV 82.4 fl (80-96) 02/18/19 09:05 MCH 27.2 pg (25.7-33.7) 02/18/19 09:05 MCHC 33.0 g/dl (32.0-35.9) 02/18/19 09:05 RDW 14.0 % (11.9-15.9) 02/18/19 09:05 Plt Count 204 K/MM3 (134-434) 02/18/19 09:05 MPV 9.2 fl (7.5-11.1) 02/18/19 09:05 Absolute Neuts (auto) 2.3 K/mm3 (1.5-8.0) 02/18/19 09:05 Neutrophils % 52.9 % (42.8-82.8) 02/18/19 09:05 Lymphocytes % 29.9 % (8-40) 02/18/19 09:05 Monocytes % 13.1 % (3.8-10.2) H 02/18/19 09:05 Eosinophils % 3.0 % (0-4.5) 02/18/19 09:05 Basophils % 1.1 % (0-2.0) 02/18/19 09:05 Nucleated RBC % 0 % (0-0) 02/18/19 09:05 ESR 20 mm/hr (0-10) H 02/17/19 08:12 Sodium 142 mmol/L (136-145) 02/18/19 09:05 Potassium 3.9 mmol/L (3.5-5.1) 02/18/19 09:05 Chloride 108 mmol/L (98-107) H 02/18/19 09:05 Carbon Dioxide 29 mmol/L (21-32) 02/18/19 09:05 Anion Gap 5 MMOL/L (8-16) L 02/18/19 09:05 BUN 16.1 mg/dL (7-18) 02/18/19 09:05 Creatinine 0.9 mg/dL (0.55-1.3) 02/18/19 09:05 Est GFR (CKD-EPI)AfAm 115.83 02/18/19 09:05 Est GFR (CKD-EPI)NonAf 99.94 02/18/19 09:05 Random Glucose 95 mg/dL (74-106) 02/18/19 09:05 Calcium 8.9 mg/dL (8.5-10.1) 02/18/19 09:05 Phosphorus 3.2 mg/dL (2.5-4.9) 02/18/19 09:05 Magnesium 1.7 mg/dL (1.8-2.4) L 02/18/19 09:05 Total Bilirubin 0.3 mg/dL (0.2-1) 02/18/19 09:05 AST 11 U/L (15-37) L 02/18/19 09:05 ALT 16 U/L (13-61) 02/18/19 09:05 Alkaline Phosphatase 71 U/L (45-117) 02/18/19 09:05 Ammonia < 10.00 umol/L (11-32) L 02/17/19 08:12 Creatine Kinase 225 U/L (26-308) 02/17/19 08:12 Creatine Kinase Index 0.4 % (0.0-5.0) 02/17/19 08:12 CK-MB (CK-2) 1.0 ng/mL (0.5-3.6) 02/17/19 08:12 Troponin I 0.03 ng/ml (0.00-0.05) 02/18/19 09:05 C-Reactive Protein 0.5 MG/DL (0.00-0.3) H 02/17/19 08:12 Total Protein 6.6 g/dl (6.4-8.2) 02/18/19 09:05 Albumin 2.6 g/dl (3.4-5.0) L 02/18/19 09:05 Triglycerides 57 mg/dL (0-150) 02/17/19 08:12 Cholesterol 189 mg/dL (50-200) 02/17/19 08:12 Total LDL Cholesterol 129 mg/dL (5-100) H 02/17/19 08:12 HDL Cholesterol 58 mg/dL (40-60) 02/17/19 08:12 Vitamin B12 468 pg/ml (193-986) 02/17/19 08:12 Urine Color Yellow 02/17/19 20:26 Urine Appearance Clear 02/17/19 20:26 Urine pH 6.5 (5.0-8.0) 02/17/19 20:26 Ur Specific [place] 1.017 (1.010-1.035) 02/17/19 20:26 Urine Protein 2+ (NEGATIVE) H 02/17/19 20:26 Urine Glucose (UA) Negative (NEGATIVE) 02/17/19 20:26 Urine Ketones Negative (NEGATIVE) 02/17/19 20:26 Urine Blood Negative (NEGATIVE) 02/17/19 20:26 Urine Nitrite Negative (NEGATIVE) 02/17/19 20:26 Urine Bilirubin Negative (NEGATIVE) 02/17/19 20:26 Urine Urobilinogen 1.0 mg/dL (0.2-1.0) 02/17/19 20:26 Ur Leukocyte Esterase Negative (NEGATIVE) 02/17/19 20:26 Urine WBC (Auto) 6 /hpf (0-5) 02/17/19 20:26 Urine RBC (Auto) 3 /hpf (0-4) 02/17/19 20:26 Urine Casts (Auto) 4 /lpf (0-8) 02/17/19 20:26 U Epithel Cells (Auto) 1.7 /HPF (0-5/HPF) 02/17/19 20:26 Urine Bacteria (Auto) 1.2 /hpf (NEGATIVE) 02/17/19 20:26 Salicylates < 1.7 mg/dL (2.8-20) L 02/16/19 19:59 Opiates Screen Negative ng/ml (EQWRER=841) 02/17/19 00:52 Methadone Screen Negative ng/ml (FIPAXO=319) 02/17/19 00:52 Acetaminophen < 10 ug/mL (10-30) L 02/16/19 19:59 Barbiturate Screen Negative ng/ml (MMZSND=565) 02/17/19 00:52 Phencyclidine Screen Negative ng/ml (CUTOFF=25) 02/17/19 00:52 Ur Amphetamines Screen Negative ng/ml (NPIQDA=968) 02/17/19 00:52 MDMA (Ecstasy) Screen Negative ng/ml (UAQQUS=907) 02/17/19 00:52 Benzodiazepines Screen Negative ng/ml (DLSUDR=159) 02/17/19 00:52 Cocaine Screen Negative ng/ml (PUKGYE=027) 02/17/19 00:52 U Marijuana (THC) Screen Negative ng/ml (CUTOFF=50) 02/17/19 00:52 Alcohol, Quantitative < 3.0 mg/dL (0.0-5.0) 02/16/19 19:59 RPR Titer Nonreactive (NONREACTIVE) 02/17/19 08:12 HIV 1&2 Ag/Ab, 4th Gen Non reactive (Non Reactive) 02/17/19 08:12 Active Medications Current Medications Amlodipine Besylate (Norvasc -) 5 mg PO DAILY [facility] Last Admin: 02/18/19 10:23 Dose: 5 mg Aspirin (Ecotrin -) 81 mg PO DAILY [facility] Last Admin: 02/18/19 10:23 Dose: 81 mg Atorvastatin Calcium (Lipitor -) 40 mg PO [facility] Enoxaparin Sodium (Lovenox -) 40 mg SQ DAILY [facility] Last Admin: 02/18/19 10:23 Dose: 40 mg Lisinopril (Prinivil) 20 mg PO DAILY [facility] Last Admin: 02/18/19 10:23 Dose: 20 mg ASSESSMENT/PLAN: 48 y.o. M PMH CVA(x3, in 2018), expressive aphasia, dysarthria, bipolar disorder presented with AMS. #Acute metabolic encephalopathy -CT head neg for acute changes -Repeat UA shows 2+ protein -Urine cx negative -Carotid US neg for stenosis -Ammonia WNL -Neg U-tox -Vit B12 WNL -HIV, RPR negative -Neuro checks -S/p 1 dose ativan in ED #Hypertensive emergency -BP 188/111 on admission; s/p 1 dose hydralazine 10mg IV in ED -Latest BP 143/95 -Started on Lisinopril 20mg daily, Norvasc 5mg daily -Pt's sister says he does not take any medications at home -[facility] end[facility] pt history of HTN #Tropinemia -Trops downtrending -Echo: Trace MR, mod LVH, normal EF #Hx CVA -CT head neg for acute pathology -Takes no known home meds #Substance abuse, MJ & EtOH -U-tox neg on adm -Alcohol neg on adm #Psychiatric hx: Bipolar d/o, depression -No known home meds -F/u w/ sister regarding past treatments/ psychiatric hospitalizations #FEN -No standing fluids, tolerating PO -Monitor lytes -Low salt diet #DVT PPX -LVX 40 SQ/ daily Visit type - Emergency Visit Emergency Visit: No - New Patient This patient is new to me today: No - Critical Care Critical Care patient: No ATTENDING PHYSICIAN STATEMENT I saw and evaluated the patient. I reviewed the resident's note and discussed the case with the resident. I agree with the resident's findings and plan as documented. SUBJECTIVE: OBJECTIVE: ASSESSMENT AND PLAN:
--- NOTE | 2019-02-18 15:53 | CON.PSY ---
Psychiatry Consult Chief Complaint: 48n Delilah old male , lives in Fdc, ? Bipolar Duisorder, s/ .p 3 strokes seen for Psych eval. Patient has atendency to walk around but does not display any aggressive behaviour. poor communicator due to aphasia. Symptoms: reports: Restlessness - Previous Psychiatric Treatment Outpatient: None, More than 6 mos ago - Previous Substance Abuse Treatment Outpatient: None Inpatient: None - Reason for Previous Treatment Reason for Previous Treatment: Biploar Illness - Current Medications Current Medications: Active Medications Amlodipine Besylate (Norvasc -) 5 mg PO DAILY [facility] Last Admin: 02/18/19 10:23 Dose: 5 mg Aspirin (Ecotrin -) 81 mg PO DAILY [facility] Last Admin: 02/18/19 10:23 Dose: 81 mg Atorvastatin Calcium (Lipitor -) 40 mg PO HS [facility] Enoxaparin Sodium (Lovenox -) 40 mg SQ DAILY [facility] Last Admin: 02/18/19 10:23 Dose: 40 mg Lisinopril (Prinivil) 20 mg PO DAILY [facility] Last Admin: 02/18/19 10:23 Dose: 20 mg - Allergies Allergies: Allergies Allergy/AdvReac Type Severity Reaction Status Date / Time No Allergy Information Allergy Verified 02/16/19 19:27 Available - Current Living Status Usual Living Arrangement: Alone - Current Mental Status Evaluation Appearance: Disheveled Attitude: Guarded - Affect Appropriateness: Appropriate to Content - Mood Mood: Euthymic - Speech/Language Expressive: Coherent - Psychomotor Activity Psychomotor Activity: Normal - Thought Process Thought Process: Other - Thought Content Hallucinations: Absent Delusions: Absent - Self Perception Self Perception: No Impairment - Cognition Attention: Alert Memory, Immediate Recall: Intact Memory, Short Term: 2/3 Memory, Remote with Promptin/3 - Concentration Serial Sevens Intact: No Simple Calculations Intact: No - Abstraction Proverb Interpretation: [place] Judgement: Minimally Impaired - Insight Insight: Impaired - Impulse Control Impulse Control: Minimally Impaired - Suicidal Ideation Suicidal Ideation: No - Homicidal Ideation Homicidal Ideation: No Assessment/Plan 1) Zyprexa 5mg po hs for ? Bipolar.,
[2019-02-18] MEDS ORDERED: PT OWN MED DRAWER 7, Y5N ONE (20:54)
[2019-02-18] MEDS ORDERED: OLANZapine 5 MG TABLET PO SCH (22:00)
[2019-02-18] MEDS ORDERED: ATORVASTATIN CA 20 MG TABLET (FP) PO SCH ×2 (22:00)
[2019-02-19 06:31] VITALS: TEMP 98
[2019-02-19 07:33] LABS: BLOOD UREA NITROGEN 12.7 mg/dL (7-18); CALCIUM 8.6 mg/dL (8.5-10.1); CREATININE 0.8 mg/dL (0.55-1.3); MAGNESIUM 1.7 mg/dL (1.8-2.4); POTASSIUM 3.7 mmol/L (3.5-5.1)
[2019-02-19] MEDS: amLODIPine BESYLATE 10 MG TABLET (FP) PO SCH ×3 (09:38→16:37)
[2019-02-19] MEDS: ASPIRIN COATED 81 MG TABLET.EC PO SCH ×3 (09:38→16:37)
[2019-02-19] MEDS: LISINOPRIL 20 MG TABLET (FP) PO SCH ×3 (09:38→16:37)
[2019-02-19] MEDS: ENOXAPARIN NA (PORCINE) 40 MG/0.4 ML DISP.SYRIN SQ SCH ×2 (09:39→09:42)
--- NOTE | 2019-02-19 11:10 | PN ---
Progress Note (short form) - Note Progress Note: asymptomatic. denies Cp, SOB, fever, chills, N/V/C/D Current Medications Generic Name Dose Route Start Last Admin Trade Name Jayleen PRN Reason Stop Dose Admin Amlodipine Besylate 10 mg 02/19/19 07:38 02/19/19 09:42 Norvasc - PO Not Given DAILY REZA Aspirin 81 mg 02/18/19 10:00 02/19/19 09:42 Ecotrin - PO Not Given DAILY REZA Atorvastatin Calcium 40 mg 02/18/19 22:00 02/18/19 22:04 Lipitor - PO 40 mg HS REZA Administration Enoxaparin Sodium 40 mg 02/18/19 10:00 02/19/19 09:42 Lovenox - SQ Not Given DAILY REZA Lisinopril 20 mg 02/18/19 10:00 02/19/19 09:42 Prinivil PO Not Given DAILY REZA Olanzapine 5 mg 02/18/19 22:00 02/18/19 22:04 Zyprexa - PO 5 mg HS REZA Administration Last Vital Signs Temp Pulse Resp BP Pulse Ox 98 F 67 20 150/98 100 02/19/19 06:31 02/19/19 06:31 02/19/19 06:31 02/19/19 06:31 02/18/19 21:00 General NAD, dysarthric CV S1 s2 RRR no murmur/rubs/gallops Lungs CTA B/L no wheezing/rales/rhonchi Abdomen soft NT/ND CMP Sodium 142 mmol/L (136-145) 02/19/19 06:33 Potassium 3.7 mmol/L (3.5-5.1) 02/19/19 06:33 Chloride 107 mmol/L (98-107) 02/19/19 06:33 Carbon Dioxide 27 mmol/L (21-32) 02/19/19 06:33 Anion Gap 7 MMOL/L (8-16) L 02/19/19 06:33 BUN 12.7 mg/dL (7-18) 02/19/19 06:33 Creatinine 0.8 mg/dL (0.55-1.3) 02/19/19 06:33 Calcium 8.6 mg/dL (8.5-10.1) 02/19/19 06:33 Total Bilirubin 0.3 mg/dL (0.2-1) 02/18/19 09:05 AST 11 U/L (15-37) L 02/18/19 09:05 ALT 16 U/L (13-61) 02/18/19 09:05 Alkaline Phosphatase 71 U/L (45-117) 02/18/19 09:05 Total Protein 6.6 g/dl (6.4-8.2) 02/18/19 09:05 Albumin 2.6 g/dl (3.4-5.0) L 02/18/19 09:05 ASSESSMENT AND PLAN: 48yo M with PMH CVA x3 with residual dysarthria, seizure, bipolar, [place] and confused 1. Acute toxic metabolic encephalopathy- possible CVA vs acute psychosis vs post -ictal seizure vs HTN emergency. alert and appears to be at baseline. seen by psych and started on zyprexa. workup all negative 2. HTN emergency- controlled but above goal. increase norvasc and titrate as needed to optimize BP. 3. Tropinemia- likely demand from HTN. Flat trend 0.06-0.06-0.05. echo reviewed. can likely get ischemia eval as outpatient 4. CVA- does not appear to have acute CVA. does not take medications. would benefit from secondary prevention. started on asa and statin 5. Bipolar- does nto take medications. started on zyprexa 6. seizure- no seizure like activity while hospitalized. monitor for seizure. seizure precautions 7. DVT ppx- lovenox 8. will need to determine safe discharge for this patient as I feel discharging back to the long-term pt would not be compliant with medications. Unsure if patient is fit to take care of himself or understands risk assoc with not being compliant with medication. Dementia unit would likely be the best solution for this as I am told sister is unable to care for him. Reached out to her but no response, message left. pt is medically stable at this time but will need safe discharge. Nursing ward supervisor and Cm aware Sandie Shin (sister) [phone] Visit type - Emergency Visit Emergency Visit: Yes ED Registration Date: 02/17/19 Care time: The patient presented to the Emergency Department on the above date and was hospitalized for further evaluation of their emergent condition. - New Patient This patient is new to me today: No - Critical Care Critical Care patient: No - Discharge Referral Referred to [facility] No
[2019-02-19 17:05] VITALS: BP 182/101; PULSE 65
--- NOTE | 2019-02-20 16:14 | DS ---
Physical Exam: SUBJECTIVE: Patient seen and examined. Unable to verbalize, nods head yes/no in response to questions. Denies CP/ SOB/ N/V/D/ fevers. Tolerating PO diet well. Ambulating well. OBJECTIVE: Vital Signs Last Vital Signs Temp Pulse Resp BP Pulse Ox 98 F 65 20 182/101 H 98 02/19/19 06:31 02/19/19 17:04 02/19/19 17:04 02/19/19 17:04 02/19/19 09:00 PHYSICAL EXAM GENERAL: Alert, awake, unable to assess orientation. Appears in no acute distress. HEENT: Poor oral hygiene. No scleral icterus. No subconjunctival hemorrhages noted. LUNGS: Breath sounds equal, clear to auscultation bilaterally, no wheezes, no crackles, no accessory muscle use. HEART: Regular rate and rhythm, S1, S2 without murmur, rub or gallop. ABDOMEN: Soft, nontender, nondistended, normoactive bowel sounds, no guarding, no masses. EXTREMITIES: 2+ pulses, warm, well-perfused, no edema. SKIN: Warm, dry, normal turgor, no rashes or lesions noted LABS HOSPITAL COURSE: 48 y.o. M PMH CVA(x3, in 2018), expressive aphasia, dysarthria, bipolar disorder presented with AMS. Presented with acute metabolic encephalopathy, possibly d/t acute psychotic episode vs CVA. CVA w/u negative. Pt is alert & oriented, able to respond to yes/no questions (which is his baseline). Pt also presented with hypertensive emergency, BP was 188/111 on admission which has since improved. Started on Lisinopril and Norvasc. Pt had positive trops which have downtrended. For hx of psychiatric d/o, psych saw patient, started on Zyprexa. Pt's sister Ms. Shin agreed to take patient home with her on discharge. Pt is clinically stable. Date of Admission:02/17/19 CXR 02/16: negative Head CT 02/16: No definite CT evidence of acute intracranial pathology. Chronic supratentorial and infratentorial infarcts are noted as discussed above. Moderate to marked periventricular and subcortical chronic microvascular ischemic changes are seen. Nonspecific multifocal bilateral parieto-occipital subcutaneous/subcutaneous soft tissue thickening is noted. Carotid Doppler US 02/17: No Doppler evidence of a high-grade carotid artery stenosis is identified. Date of Discharge: 02/20/19 Minutes to complete discharge: 36 Discharge Summary Reason For Visit: ELEVATED TROPONIN LEVEL, ALTERED MENTAL STATUS Condition: Improved - Instructions Diet, Activity, Other Instructions: You were admitted to the hospital because you were found [place] the train station unresponsive. Your blood pressure was very high which has improved with medication. It is very important that you take your medications daily, regardless of your symptoms. You need medications to control your blood pressure and minimize the risk for future strokes You should follow with a primary care doctor as well as a psychiatrist. Information on ones in this area have been provided. If these are too far with you look into ones in your community Please return to the hospital if you develop chest pain, shortness of breath or fevers. Referrals: Marcin Figueroa MD [Staff Physician] - Daryl Krishnamurthy MD [Staff Physician] - Disposition: HOME - Home Medications Comprehensive Discharge Medication List: Ambulatory Orders Amlodipine Besylate [Norvasc -] 10 mg PO DAILY #30 tablet 02/19/19 Aspirin Coated [Ecotrin -] 81 mg PO DAILY #30 tablet.ec 02/19/19 Atorvastatin Ca [Lipitor] 40 mg PO HS #30 tablet 02/19/19 Lisinopril [Prinivil] 20 mg PO DAILY #30 tablet 02/19/19 Olanzapine [Zyprexa -] 5 mg PO HS #30 tablet 02/19/19 This patient is new to me today: No Emergency Visit: No Critical Care patient: No - Discharge Referral Referred to [facility] No ATTENDING PHYSICIAN STATEMENT I saw and evaluated the patient. I reviewed the resident's note and discussed the case with the resident. I agree with the resident's findings and plan as documented. SUBJECTIVE: OBJECTIVE: ASSESSMENT AND PLAN:
== END 2019-02-19 17:40 | disposition home or self-care (01) | DRG 751 ==
LOC: JER 18:47 → JERBED 02-17 01:23 → J8W 02-17 18:37
PROVIDERS: ADMIT Internal Medicine; ATTEND Internal Medicine
DX: F23 Brief psychotic disorder (principal); G93.41 Metabolic encephalopathy; I69.321 Dysphasia following cerebral infarction; R32 Unspecified urinary incontinence; F31.9 Bipolar disorder, unspecified; I10 Essential (primary) hypertension; R45.1 Restlessness and agitation; I16.1 Hypertensive emergency; R56.9 Unspecified convulsions; F19.10 Other psychoactive substance abuse, uncomplicated; F29 Unspecified psychosis not due to a substance or known physiological condition; R15.9 Full incontinence of feces; I45.81 Long QT syndrome
CPT/HCPCS: 36415; 70450-TC; 71045-TC-FY; 80048; 80053; 80061; 80307; 81003; 82140; 82550; 82553; 82607; 83721; 83735; 84100; 84484; 85025; 85651; 86140; 86593; 87086; 87389; 93005; 93010; 93306-TC; 93880-TC; 99285-25; J7030